=== PATIENT | female | born 1990 | race Hispanic/Latino ===

== ENCOUNTER 2019-04-16 14:47 | Emergency (ER) | payer SELFPAY ==
[~2019-04-16] VITALS: Ht 154.9 cm; Wt 102.1 kg
[2019-04-16] MEDS ORDERED: CLINDAMYCIN PHOS 600 MG/ 4 ML VIAL ONE (15:11)
[2019-04-16] MEDS ORDERED: CLINDAMYCIN PHOS 600 MG/ 4 ML VIAL IM ONE (15:15)
== END 2019-04-16 15:17 | disposition home or self-care (01) ==
LOC: FSED 14:47
DX: L03.115 Cellulitis of right lower limb (principal); M25.561 Pain in right knee
CPT/HCPCS: 99282